=== PATIENT | male | born 1950 | race Two or more races ===

== ENCOUNTER 2016-05-03 13:18 | Inpatient (IN) | payer MEDICAID, OTHER ==
[~2016-05-03] VITALS: Ht 165.1 cm; Wt 74.3 kg
[2016-05-03 13:52] LABS: Basophils # (auto) 0 uL; Basophils % (auto) 0.3 % (0.0-2.0); Eosinophils # (auto) 0.1 uL; Hematocrit 49.3 % (41.0-53.0); Hemoglobin 16.5 g/dL (13.5-17.5); Lymphocytes # (auto) 3.3 uL; Lymphocytes % (auto) 27.2 % (10.0-50.0); Mean Corpuscular Hemoglobin 32.2 pg (28.0-32.0); Mean Corpuscular Hgb Conc. 33.4 g/dL (32.0-36.0); Mean Corpuscular Volume 96.3 fL (80.0-100.0); Monocytes # (auto) 0.8 uL; Monocytes % (auto) 6.6 % (0.0-12.0); Neutrophils # (auto) 7.9 uL; Neutrophils % (auto) 64.9 % (37.0-80.0); Platelet Count (auto) 251 10^3/uL (140-450); Red Cell Distribution Width 12.5 % (11.6-16.0); White Blood Cell 12.1 10^3/uL (4.4-10.8)
[2016-05-03 14:04] LABS: Albumin 4.3 g/dL (3.4-5.0); Anion Gap 23 (5-15); Aspartate Aminotransferase 36 U/L (15-37); BUN/Creatinine Ratio 11.4; Blood Urea Nitrogen 20 mg/dL (7-18); Calcium 8.6 mg/dL (8.5-10.1); Carbon Dioxide 14 mmol/L (21-32); Chloride 104 mmol/L (98-107); GFR African American 51 mL/min; GFR Non-African American 42 mL/min; Glucose 154 mg/dL (74-106); Potassium 3.8 mmol/L (3.5-5.1); Sodium 141 mmol/L (136-145)
[2016-05-03 14:09] LABS: Alkaline Phosphatase 83 U/L (45-117); Bilirubin, Total 0.6 mg/dL (0.2-1.0); Total Protein 8.6 g/dL (6.4-8.2)
[2016-05-03 14:18] LABS: Lactic Acid 15.6 mmol/L (0.4-2.0)
[2016-05-03 14:26] LABS: INR 1.04 (0.9-1.15); Partial Thromboplastin Time 23.8 sec (22.64-33.71); Prothrombin Time 10.7 sec (9.37-12.3)
[2016-05-03 14:34] LABS: REFLEX LACTIC ACID YES OR NO YES
[2016-05-03 14:45] LABS: Urine Bilirubin Negative (Negative); Urine Blood TRACE /uL (Negative); Urine Color Yellow (Yellow); Urine Glucose Normal (Normal); Urine Ketone TRACE (Negative); Urine Mucus FEW (None Seen); Urine Nitrite Negative (Negative); Urine RBC <1 /hpf (0 - 3); Urine Sperm PRESENT /hpf (None Seen); Urine Squamous Epithelial Cell FEW /hpf (<5); Urine Urobilinogen Normal (Negative); Urine pH 5.5 (5.0-8.0)
[2016-05-03] MEDS ORDERED: PIPERACILLIN-TAZO 4.5GM 100 ML IV ONE (16:30)
[2016-05-03 16:52] LABS: REFLEX LACTIC ACID YES OR NO NO
[2016-05-03] MEDS ORDERED: MORPHINE SULF INJ 2 MG/ML SYRINGE 1ML IV PRN ×2 (17:00)
[2016-05-03] MEDS ORDERED: LEVETIRACETAM 500 MG TAB PO ONE (17:00)
[2016-05-03] MEDS ORDERED: ACETAMINOPHEN 500 MG TAB PO PRN (17:00)
[2016-05-03] MEDS ORDERED: LACTULOSE 20Gm/30ML SOLN PO PRN (17:00)
[2016-05-03] MEDS ORDERED: HYDROcodone-ACET 5/325MG TAB PO PRN (17:00)
[2016-05-03] MEDS ORDERED: PROMETHAZINE HCL 25 MG/ML 1ML IV PRN (17:00)
[2016-05-03] MEDS ORDERED: DEXTROSE (50%) 50ML SYRG IV PRN (17:00)
[2016-05-03] MEDS ORDERED: TEMAZEPAM 15 MG CAP PO PRN (17:00)
[2016-05-03] MEDS ORDERED: LORazepam 0.5 MG TAB PO PRN (17:00)
[2016-05-03] MEDS ORDERED: NITROGLYCERIN 0.4 MG SL TAB SL PRN (17:00)
[2016-05-03] MEDS ORDERED: SODIUM CHLORIDE 0.9% 1,000 ML IV SCH (18:49)
[2016-05-03] MEDS ORDERED: PANTOPRAZOLE 40 MG TAB PO ONE (19:00)
[2016-05-03] MEDS ORDERED: ASPirin 81 mg TAB PO ONE (19:00)
[2016-05-03] MEDS: InsuLIN REG 1unit/0.01ml Soln (100units/ml) SC SCH (19:29)
[2016-05-03] MEDS: ACCU-CHEK COMFORT CURVE STRIP VI SCH (19:29)
[2016-05-03] MEDS: LEVETIRACETAM 500 MG TAB PO SCH (21:38)
[2016-05-03] MEDS: ATORVASTATIN 20 MG TAB PO SCH (21:38)
[2016-05-03] MEDS: METOPROLOL TARTRATE 25 MG TAB PO SCH (21:39)
[2016-05-03 22:00] VITALS: BP 135/88
[2016-05-03] MEDS ORDERED: LEVETIRACETAM 500 MG TAB PO SCH (22:00)
[2016-05-03] MEDS: SODIUM CHLORIDE 0.9% 1,000 ML IV SCH (22:06)
[2016-05-04] MEDS: ACCU-CHEK COMFORT CURVE STRIP VI SCH ×3 (00:05→11:16)
[2016-05-04 04:12] LABS: Basophils # (auto) 0 uL; Basophils % (auto) 0.2 % (0.0-2.0); Eosinophils # (auto) 0 uL; Eosinophils % (auto) 0.1 % (0.0-7.0); Hematocrit 39.7 % (41.0-53.0); Hemoglobin 13.5 g/dL (13.5-17.5); Lymphocytes # (auto) 1.3 uL; Lymphocytes % (auto) 10.5 % (10.0-50.0); Mean Corpuscular Hemoglobin 32.4 pg (28.0-32.0); Mean Corpuscular Volume 95.1 fL (80.0-100.0); Mean Platelet Volume 9.8 fL (7.4-10.4); Monocytes # (auto) 0.8 uL; Monocytes % (auto) 6.9 % (0.0-12.0); Neutrophils # (auto) 9.9 uL; Neutrophils % (auto) 82.3 % (37.0-80.0); Platelet Count (auto) 179 10^3/uL (140-450); Red Cell Distribution Width 12.4 % (11.6-16.0); White Blood Cell 12.1 10^3/uL (4.4-10.8)
[2016-05-04 05:00] VITALS: BP 101/65
[2016-05-04 05:13] LABS: Albumin 3.3 g/dL (3.4-5.0); BUN/Creatinine Ratio 13.7; Calcium 7.9 mg/dL (8.5-10.1); Potassium 3.9 mmol/L (3.5-5.1); Total Protein 6.5 g/dL (6.4-8.2)
[2016-05-04] MEDS: InsuLIN REG 1unit/0.01ml Soln (100units/ml) SC SCH ×3 (06:00→11:16)
[2016-05-04 09:00] VITALS: BP 117/76
[2016-05-04] MEDS: ENOXAPARIN SOD 40 MG/0.4 ML SYRINGE SC SCH (09:55)
[2016-05-04] MEDS: LEVETIRACETAM 500 MG TAB PO SCH ×2 (09:55→21:48)
[2016-05-04] MEDS: PANTOPRAZOLE 40 MG TAB PO SCH (09:55)
[2016-05-04] MEDS: METOPROLOL TARTRATE 25 MG TAB PO SCH ×2 (09:56→21:49)
[2016-05-04] MEDS: ASPirin 81 mg TAB PO SCH (09:56)
[2016-05-04 12:06] VITALS: BP 110/67
[2016-05-04 16:05] VITALS: BP 110/61
[2016-05-04] MEDS: ATORVASTATIN 20 MG TAB PO SCH (21:48)
[2016-05-04 22:00] VITALS: BP 112/70
[2016-05-05] VITALS (8 sets, daily range): BP systolic 100–124; BP diastolic 59–74
[2016-05-05] MEDS: SODIUM CHLORIDE 0.9% 1,000 ML IV SCH ×3 (02:49→18:06)
[2016-05-05 06:46] LABS: Basophils # (auto) 0 uL; Basophils % (auto) 0.4 % (0.0-2.0); Eosinophils # (auto) 0.2 uL; Eosinophils % (auto) 2.4 % (0.0-7.0); Hematocrit 37.5 % (41.0-53.0); Hemoglobin 13.1 g/dL (13.5-17.5); Lymphocytes # (auto) 1.2 uL; Lymphocytes % (auto) 19.2 % (10.0-50.0); Mean Corpuscular Hemoglobin 32.9 pg (28.0-32.0); Mean Corpuscular Volume 94.2 fL (80.0-100.0); Mean Platelet Volume 9.6 fL (7.4-10.4); Monocytes # (auto) 0.6 uL; Monocytes % (auto) 8.7 % (0.0-12.0); Neutrophils # (auto) 4.4 uL; Neutrophils % (auto) 69.3 % (37.0-80.0); Platelet Count (auto) 170 10^3/uL (140-450); Red Cell Distribution Width 12.5 % (11.6-16.0); White Blood Cell 6.4 10^3/uL (4.4-10.8)
[2016-05-05 07:35] LABS: Albumin 3.1 g/dL (3.4-5.0); BUN/Creatinine Ratio 13.5; Bilirubin, Total 0.9 mg/dL (0.2-1.0); Calcium 8.1 mg/dL (8.5-10.1); Total Protein 6.2 g/dL (6.4-8.2)
[2016-05-05] MEDS: PANTOPRAZOLE 40 MG TAB PO SCH (09:35)
[2016-05-05] MEDS: LEVETIRACETAM 500 MG TAB PO SCH (09:35)
[2016-05-05] MEDS: ENOXAPARIN SOD 40 MG/0.4 ML SYRINGE SC SCH (09:35)
[2016-05-05] MEDS: METOPROLOL TARTRATE 25 MG TAB PO SCH ×2 (09:36→22:59)
[2016-05-05] MEDS: ASPirin 81 mg TAB PO SCH (09:36)
[2016-05-05] MEDS: ATORVASTATIN 20 MG TAB PO SCH (22:58)
[2016-05-06] MEDS: SODIUM CHLORIDE 0.9% 1,000 ML IV SCH ×2 (02:54→10:49)
[2016-05-06 05:00] VITALS: BP 101/63
[2016-05-06 06:29] LABS: BUN/Creatinine Ratio 14.1; Calcium 7.9 mg/dL (8.5-10.1); Potassium 3.6 mmol/L (3.5-5.1)
[2016-05-06 09:00] VITALS: BP 134/78
[2016-05-06] MEDS: PANTOPRAZOLE 40 MG TAB PO SCH (09:42)
[2016-05-06] MEDS: ASPirin 81 mg TAB PO SCH (09:42)
[2016-05-06] MEDS: METOPROLOL TARTRATE 25 MG TAB PO SCH (09:42)
[2016-05-06] MEDS: ENOXAPARIN SOD 40 MG/0.4 ML SYRINGE SC SCH (09:42)
[2016-05-06 10:54] VITALS: BP 134/78
== END 2016-05-06 12:30 | disposition home or self-care (01) | DRG 720 ==
LOC: ER 13:18 → TELE 13:19 → TELE-EAST 19:50
PROVIDERS: ADMIT Internal Medicine; ATTEND Internal Medicine
DX: A41.9 Sepsis, unspecified organism (principal); G93.41 Metabolic encephalopathy; E87.2 Acidosis; N17.9 Acute kidney failure, unspecified; E44.0 Moderate protein-calorie malnutrition; M62.82 Rhabdomyolysis; E11.21 Type 2 diabetes mellitus with diabetic nephropathy; I10 Essential (primary) hypertension; Z87.442 Personal history of urinary calculi; I25.118 Atherosclerotic heart disease of native coronary artery with other forms of angina pectoris; I25.2 Old myocardial infarction; E86.0 Dehydration; G40.909 Epilepsy, unspecified, not intractable, without status epilepticus; Z83.3 Family history of diabetes mellitus; Z98.49 Cataract extraction status, unspecified eye
CPT/HCPCS: 36415; 70450; 70551; 71010; 80048; 80053; 80061; 80320; 81001; 82550; 82962; 83036; 83605; 84484; 85025; 85610; 85652; 85730; 86141; 87040; 87086; 93005; 95819; 96365; G0434; J2543